=== PATIENT | male | born 1960 | race Caucasian/White ===

== ENCOUNTER → 2022-02-21 | Outpatient (CLI) | payer BC ==
[~2022-02-21] VITALS: Ht 182.9 cm; Wt 118.2 kg
[~2022-02-21] MED LIST: ACETAMINOPHEN 500 MG TAB (TYLENOL) PO PRN; ACHYD1T PO; BEBTELOVIMAB 175 MG/2 ML VIAL IV ONE; CIPR500T78 PO; CRESTOR; CRESTOR PO; DCS100C; EPINEPHrine INJECTION 1 MG/ML AMP IM PRN; HYDR-3720; HYDR12.570 PO; KRIL1CAP7 PO; LIRA0.6P SQ; METF-380 PO; ONDANSETRON 4 MG/2 ML (SDV) Z0FRAN IV PRN; ONDN4T; PHEN200T27 PO; POTA15TA9 PO; SITA1TAB6 PO; SITA1TBM7 PO; [UNRECOGNIZED DRUG - OTHER]; diphenhydrAMINE 50 MG/ML INJ (BENADRYL) IV PRN
[2022-02-21 09:35] VITALS: BP 167/95
[2022-02-21 10:47] VITALS: BP 154/92
== END ==
LOC: INFUSION 09:19
PROVIDERS: ATTEND Nurse Practitioner Family
DX: U07.1 COVID-19 (principal)

== ENCOUNTER 2022-08-05 05:32 | Outpatient (CLI) | payer BC ==
[~2022-08-05] VITALS: Ht 182.9 cm; Wt 118.2 kg
[~2022-08-05 05:32] MED LIST changes: -ACETAMINOPHEN 500 MG TAB (TYLENOL) PO PRN; -BEBTELOVIMAB 175 MG/2 ML VIAL IV ONE; -EPINEPHrine INJECTION 1 MG/ML AMP IM PRN; -ONDANSETRON 4 MG/2 ML (SDV) Z0FRAN IV PRN; -diphenhydrAMINE 50 MG/ML INJ (BENADRYL) IV PRN
[2022-08-05] MEDS ORDERED: DAPA10TA PO (12:50)
[2022-08-05] MEDS ORDERED: GEMF600T88 PO (12:50)
[2022-08-05] MEDS ORDERED: ROSU20TA32 PO (12:50)
[2022-08-05] MEDS ORDERED: LOSA25TA41 PO (12:50)
[2022-08-05] MEDS ORDERED: VITAMIN D (12:50)
[2022-08-05] MEDS ORDERED: GLIP10TA13 PO (12:50)
[2022-08-05] MEDS ORDERED: VIT1CAPS5 PO (12:50)
== END 2022-08-05 12:51 | disposition home or self-care (01) ==
LOC: PREOP 05:32
PROVIDERS: ATTEND Surgery
DX: Z01.818 Encounter for other preprocedural examination (principal); Z12.11 Encounter for screening for malignant neoplasm of colon; Z86.010 Personal history of colon polyps

== ENCOUNTER 2022-08-07 11:41 | Day surgery (SDC) | payer BC ==
[~2022-08-07] VITALS: Ht 183 cm; Wt 118.2 kg
[~2022-08-07 11:41] MED LIST changes: +DAPA10TA PO; +GEMF600T88 PO; +GLIP10TA13 PO; +LOSA25TA41 PO; +ROSU20TA32 PO; +VIT1CAPS5 PO; +VITAMIN D
[2022-08-07] MEDS ORDERED: LACTATED RINGERS 1,000 ML IV STA (11:42)
[2022-08-07] MEDS ORDERED: HURRICAINE EXT TUBE (BENZOCAINE) XX ONE (11:45)
[2022-08-07] MEDS ORDERED: LIDOCAINE JELLY 2% 6 ML SYRINGE MM PRN (11:45)
[2022-08-07 12:00] VITALS: BP 149/90
--- NOTE | 2022-08-07 12:28 | Discharge Inst-Surgical ---
D/C Lap Instructions-MACARENA Follow Up Appt in 2 weeks Activity as tolerated High Fiber Diet 25g or more per day Avoid Alcohol, Caffeine, Spicy [place] and Acid foods. Drink 64 fluid oz or more of fluids per day. Symptoms to Report: Fever over 101 degree F, Nausea/Vomiting If any problems/questions: Contact your physician or go to Emergency Room MATEUS FIORE MD Aug 07, 2022 12:28
[2022-08-07] MEDS ORDERED: ONDANSETRON 4 MG (ZOFRAN) ORAL DISSOLVE TAB PO PRN ×3 (12:30→13:45)
[2022-08-07] MEDS ORDERED: ONDANSETRON 4 MG/2 ML (SDV) Z0FRAN IVP PRN ×3 (12:30→13:45)
[2022-08-07] MEDS ORDERED: LIDOCAINE JELLY 2% 6 ML SYRINGE ONE (12:31)
[2022-08-07] MEDS ORDERED: PROPOFOL INJECTION 50 ML IV ONE ×2 (12:31→13:06)
[2022-08-07] MEDS ORDERED: MIDAZOLAM 2 MG/2 ML (VERSED) VIAL ONE (12:31)
[2022-08-07 13:15] VITALS: BP 120/56
[2022-08-07 13:20] VITALS: BP 114/56
--- NOTE | 2022-08-07 13:39 | Progress Note-Pre Operative ---
Pre-Operative Progress Note Date of Available H&P: Aug 07, 2022 Date H&P Reviewed: Aug 07, 2022 Time H&P Reviewed: 12:30 History & Physical: No changes noted Pre-Operative Diagnosis: screenin colo, hemorrhoids MATEUS FIORE MD Aug 07, 2022 13:39
--- NOTE | 2022-08-07 13:42 | Progress Note-Post Operative ---
Post-Operative Progess Note Surgeon (s)/Organizational Development Consultant (s) Surgeon MATEUS FIORE MD Organizational Development Consultant: none Pre-Operative Diagnosis screenin colo, hemorrhoids Post-Operative Diagnosis chronic sx stage 2-3 ext and int hemorrhoids, normal colon and rectum Procedure & Operative Findings Date of Procedure 08/07/22 Procedure Performed/Findings colonoscopy with hemorrhoidal banding x2 Anesthesia Type mac Estimated Blood Loss Estimated blood loss (mL): minimal Specimens/Packing Specimens Removed none MATEUS FIORE MD Aug 07, 2022 13:42
--- NOTE | 2022-08-07 14:25 | Anesthesia-General Post-Op ---
MAC Patient Condition Mental Status/LOC: Same as Preop Cardiovascular: Satisfactory Nausea/Vomiting: Absent Respiratory: Satisfactory Pain: Controlled Complications: Absent Post Op Complications Complications None Follow Up Care/Instructions Patient Instructions None needed. Anesthesiology Discharge Order Discharge Order Patient is doing well, no complaints, stable vital signs, no apparent adverse anesthesia problems. No complications reported per nursing. KHUSHBOO CAMACHO CRNA Aug 07, 2022 14:24
[2022-08-07 14:26] VITALS: BP 114/56
--- NOTE | 2022-08-07 22:34 | OPERATIVE REPORT ---
DATE OF SERVICE: 08/07/2022 ATTENDING PRIMARY CARE PHYSICIAN: Dr. Attila Marrero. PREOPERATIVE DIAGNOSES: Screening colonoscopy, hemorrhoids. POSTOPERATIVE DIAGNOSES: Between chronic stage II to III external and internal hemorrhoids, remainder of the colon and rectum were normal. PROCEDURE: Colonoscopy and hemorrhoidal banding. SURGEON: Dr. Fiore. ANESTHESIA: Monitored anesthesia care. ESTIMATED BLOOD LOSS: Minimal. FINDINGS: Between chronic stage II to III external and internal hemorrhoids, remainder of the colon and rectum were normal. DISPOSITION: The patient tolerated the procedure well. INDICATIONS: The patient is a 62-year-old male referred over to us for a colonoscopy. His last one was approximately seven years ago and he states that he had some polyps and believes that these were removed and found to be benign. He states that he is otherwise doing well; however, does have issues with hemorrhoidal flareups, which bleed and does cause puffy cushions to arise, which cause pain and discomfort upon sitting. He does not report any major issues with diarrhea nor constipation. He also does not report any family history of colon cancer. DESCRIPTION OF PROCEDURE: The patient was brought to the endoscopy suite and laid in the left lateral decubitus position. After adequate IV pain and sedative medications and monitored anesthesia care, digital rectal examination was performed. There were chronic between stage II and III external and internal hemorrhoids identified. Normal sphincter tone itself and there were no palpable masses. Prostate gland was palpable and appeared normal. The endoscope was then intubated into the anus and the rectum was gently insufflated. The endoscope was then advanced through the valves of Garcia of the rectum with no polyps or any neoplasms identified. We then proceeded through the sigmoid colon where no diverticulosis identified. The endoscope was then advanced to the remainder of the descending, transverse and ascending colon to the cecum, which were normal. There were no polyps or any neoplasms identified throughout the colon or rectum. The endoscope was then slowly withdrawn while taking a second look and suctioning of residual air with no additional findings. Due to his symptomatic stage III internal hemorrhoids, there were two internal hemorrhoidal cushions that did stand out. The anoscope was placed and the internal hemorrhoidal cushion along the left lateral portion of the anus was banded with visualization of good hemostasis. The second internal hemorrhoidal cushion that was pronounced was the right lateral one, which was banded in a similar fashion with visualization of good hemostasis. There was no elicited pain upon grasping the internal hemorrhoid cushions using the angled ricardo clamp. The anoscope was then removed. The patient tolerated the procedure well. We will recommend the necessary lifestyle and dietary accommodations including high fiber diet with addition of fiber supplement, which should equal or exceed 25-30 grams daily as well as significant amounts of water to promote soft stools on a daily basis. With these softer stools, this should prevent hemorrhoidal flareups as well as prevention of other issues that may arise within the colon. He does not have a first-degree family history of colon cancer and no polyps were identified. If he is asymptomatic, he does not need another colonoscopy for another 10 years. Job ID: [id number] DocumentID: [id number] Dictated Date: 08/07/2022 13:20:14 Supervisor [employer] Date: 08/07/2022 22:32:00 Dictated By: MATEUS FIORE MD MTDD
== END 2022-08-07 14:30 | disposition home or self-care (01) ==
LOC: ENDO 11:41
PROVIDERS: ATTEND Surgery
DX: K64.2 Third degree hemorrhoids (principal); E66.9 Obesity, unspecified; K64.4 Residual hemorrhoidal skin tags; E11.9 Type 2 diabetes mellitus without complications; Z79.84 Long term (current) use of oral hypoglycemic drugs; Z68.35 Body mass index [BMI] 35.0-35.9, adult; Z86.010 Personal history of colon polyps